=== PATIENT | male | born 1980 | race African-American/Black ===

== ENCOUNTER 2016-09-02 09:07 | Emergency (ER) | payer BC, MEDICAID ==
[2016-09-02 09:13] VITALS: TEMP 97.5
--- NOTE | 2016-09-02 09:28 | EDPHY ---
H & P Stated Complaint: swelling in left foot one week ago. thought it was gout - Personal History Current Tetanus/Diphtheria Vaccine: Yes Current Tetanus Diphtheria and Acellular Pertussis (TDAP): Yes - Medical/Surgical History Hx Asthma: No Hx Chronic Respiratory Disease: No Hx Diabetes: No Hx Cardiac Disease: No Hx Renal Disease: No Hx Cirrhosis: No Hx Alcoholism: No Hx HIV/AIDS: No Hx Splenectomy or Spleen Trauma: No Other PMH: HTN, ELEVATED CHOLESTEROL, GOUT, R KNEE ASPIRATION, HERNIA REPAIR X 2 - Social History Smoking Status: Never smoked HPI/ROS: Chief complaint: Left leg swelling History of present illness: This is a 35-year-old male who presents to the emergency department for evaluation of left leg swelling. Patient reports the onset of symptoms over the last 1-2 days. It initially started in the ankle, now feels the foot and lower leg are involved. He went to urgent care and was sent here to rule out DVT. He states it does not hurt. He is still able to move the leg well. He denies other associated signs or symptoms including no fevers, no redness, warmth or tenderness to the leg. No abnormal coolness or paresthesias in the leg. No history of trauma. No chest pain, no shortness of breath, no cough. His right leg is not affected. Review of systems: A 10 point review of systems was obtained and other than described above was negative (Marquis Lowery) - Physical Exam Exam: General Appearance: Alert, nontoxic. Eyes: Pupils equal and round no injection. Respiratory: Chest is nontender, lungs are clear to auscultation. Cardiovascular: Regular rate and rhythm. DP and PT pulses 2+. Musculoskeletal: No tenderness to palpation of the left leg. Trace edema to the ankle in left lower legs compared to the right leg. He is moving the leg without difficulty. He is ambulating well. Skin: No rashes or lesions. Neurological: Alert and oriented x4. Strength and sensation intact and symmetrical. (Marquis Lowery) Constitutional: Initial Vital Signs Temperature (C) 36.4 C 09/02/16 09:11 Heart Rate 77 09/02/16 09:11 Respiratory Rate 16 09/02/16 09:11 Blood Pressure 209/122 H 09/02/16 09:11 O2 Sat (%) 98 09/02/16 09:11 O2 Delivery Mode Room Air Allergies/Adverse Reactions: Penicillins Allergy (Verified 09/14/14 02:41) Home Medications: Medication Instructions Recorded Crestor 09/14/14 Lisinopril-Hctz 10-12.5 mg Tab 09/14/14 Verapamil 09/14/14 predniSONE [prednisone 20mg (RX)] 40 mg PO DAILY #6 tab 09/14/14 Medical Decision Making - Diagnostics Imaging: Discussed imaging studies w/ call center agent Radiologist - Diagnostics Imaging Results: Imaging Impressions Extremity Venous Study 09/02/16 09:19 Impression: No deep venous thrombosis in the left lower extremity. Findings discussed with ANDRES Arnett at 10:44 hour, 09/02/2016. ED Course/Re-evaluation: Patient seen under the supervision of my secondary supervising physician Dr. Sharmila Argueta. Patient presents to the emergency department for mild left leg swelling. The leg is neurovascularly intact. He has good musculoskeletal control. Ultrasound is negative. The right leg is not affected. He has no other complaints. Patient will be discharged home. He is asked to follow up with his primary care doctor for recheck of his leg as well as other findings including blood pressure. Return precautions are given. Patient voiced understanding and agreement with plan. (Marquis Lowery) Differential Diagnosis: Included but not limited to thromboembolic disease, infection, traumatic injury , unlikely systemic complications such as heart failure renal failure or liver failure given isolated left leg involvement with normal right leg (Marquis Lowery) Other Provider: The patient was evaluated and managed by the physician ophthalmology assistant. I have reviewed this chart and I agree with the findings and plan of care as documented , as indicated by my signature. I am the secondary supervising physician. ( Sharmila Argueta) Departure - Departure Disposition: Home, Routine, Self-Care Clinical Impression: Left leg swelling Condition: Good Instructions: Leg Edema (ED) Additional Instructions: Follow-up with your primary care doctor for recheck Talk your primary care doctor about repeat ultrasound as needed If symptoms worsen or new symptoms develop return to the emergency room for recheck Referrals: SOURAV HARDY [Primary Care Provider] - As per Instructions
[2016-09-02 11:29] VITALS: BP 174/99; PULSE 69; RESP 18; O2SAT 95
== END 2016-09-02 11:28 | disposition home or self-care (01) ==
DX: M79.89 Other specified soft tissue disorders (principal); I10 Essential (primary) hypertension

== ENCOUNTER 2017-08-16 16:17 | Emergency (ER) | payer BC ==
--- NOTE | 2017-08-16 17:11 | EDPHY ---
H & P Stated Complaint: LEFT LEG PAIN. SENT TO R/O DVT Time Seen by Provider: 08/16/17 16:40 - Personal History Current Tetanus/Diphtheria Vaccine: Yes Current Tetanus Diphtheria and Acellular Pertussis (TDAP): Yes - Medical/Surgical History Hx Asthma: No Hx Chronic Respiratory Disease: No Hx Diabetes: No Hx Cardiac Disease: No Hx Renal Disease: No Hx Cirrhosis: No Hx Alcoholism: No Hx HIV/AIDS: No Hx Splenectomy or Spleen Trauma: No Other PMH: HTN, ELEVATED CHOLESTEROL, GOUT, R KNEE ASPIRATION, HERNIA REPAIR X 2 - Social History Smoking Status: Never smoked Constitutional: Initial Vital Signs Temperature (C) 36.4 C 08/16/17 16:22 Heart Rate 78 08/16/17 16:22 Respiratory Rate 17 08/16/17 16:22 Blood Pressure 154/102 H 08/16/17 16:22 O2 Sat (%) 93 08/16/17 16:22 O2 Delivery Mode Room Air Allergies/Adverse Reactions: Penicillins Allergy (Verified 09/14/14 02:41) Home Medications: Medication Instructions Recorded Crestor 09/14/14 Lisinopril-Hctz 10-12.5 mg Tab 09/14/14 Verapamil 09/14/14 predniSONE [prednisone 20mg (RX)] 40 mg PO DAILY #6 tab 09/14/14 Medical Decision Making - Diagnostics Imaging: Discussed imaging studies w/ call center dispatcher Radiologist ED Course/Re-evaluation: CHIEF COMPLAINT: Left leg swelling and redness HISTORY OF PRESENT ILLNESS: The patient is a 36 y/o male with a history of gout and hypertension who presents with left leg redness and swelling that began 4 days ago. He first noticed redness along his lower left leg on Friday and by that evening he describes severe pain in his left knee that kept him from sleeping. By Friday morning he had associated swelling. He was unable to walk over the first two days of symptoms due to pain. Over the last few days the pain has faded, but he continues to have redness and swelling extending form his knee to his ankle along the anterior aspect. He denies any new topical contacts, long sedentary periods, or recent travel. No dyspnea, chest pain, fever, vomiting, nausea, diarrhea, urinary complaints. REVIEW OF SYSTEMS: A 10 point review of systems was performed and is negative with the exception of the elements mentioned in the history of present illness. PHYSICAL EXAM: HR, BP, O2 Sat, RR. Temp noted General Appearance: Alert, well hydrated, appropriate, and non-toxic appearing. Head: Atraumatic without scalp tenderness or obvious injury Eyes: Pupils equal, round, reactive to light and accommodation, EOMI, no trauma , no injection. Nose: Atraumatic, no rhinorrhea, clear. Throat: Mucus membranes moist. Neck: Supple, non-tender, no lymphadenopathy. Respiratory: No retractions, no distress, no wheezes, and no accessory muscle use. Lungs are clear to auscultation bilaterally. Cardiovascular: Regular rate and rhythm, no murmurs, rubs, or gallops. Normal left dorsalis pedis pulse. Good capillary refill all extremities. Gastrointestinal: Abdomen is soft, non-tender, non-distended, no masses, no rebound, no guarding, no peritoneal signs. Musculoskeletal: Normal active ROM of all extremities, atraumatic. Left leg: confluent erythema and dryness along leg from knee to ankle, no warmth , blanching, significant swelling. Neurological: Alert, appropriate, and interactive. The patient has non-focal cranial nerves, motor, sensory, and cerebellar exam. Skin: No rashes, good turgor, no nodules on palpation. PAST MEDICAL HISTORY: Hypertension, gout, hyperlipidemia PAST SURGICAL HISTORY: Hernia repair x2 SOCIAL HISTORY: Lives in [place]. Employed. DIAGNOSTICS/PROCEDURES/CRITICAL CARE TIME: Left leg US: negative for DVT DIFFERENTIAL DIAGNOSIS: The differential diagnosis for the patient's leg swelling included but was not limited to vasculitis, gout, hypoalbuminemia, congestive heart failure, cor pulmonale, venous stasis, trauma, and DVT. MEDICAL DECISION MAKING: This is a 36 y/o male with a history of gout who presents with a 4-day history of left lower leg redness and erythema and now-resolved left knee pain. On exam he has confluent erythema extending from his knee to his ankle without warmth, significant swelling, or tenderness. He has no signs of systemic illness and is generally well-appearing. Presentation could represent vasculitis, or less likely DVT, gout, or cellulitis. Plan for left leg US to rule out thrombus. US is negative. Patient will be discharged home with standard care and follow up instructions. Recommended following up with his PCP and rubber goods cutter finisher this week. Return precautions discussed. He is comfortable with this plan. Departure - Departure Disposition: Home, Routine, Self-Care Clinical Impression: Vasculitis, left leg Condition: Good Instructions: Additional Information Additional Instructions: 1. Follow up with your primary care provider this week. 2. Follow up with your rubber goods cutter finisher this week. You've been referred to Dr. Harrington locally if referral is needed. 3. Return to the ED for severe pain, chest pain, difficulty breathing, or other worsening of condition. Referrals: Chaka Khan DO [Primary Care Provider] - As per Instructions Frandy Pearson MD [[facility]] - As per Instructions Report Scribed for: Fredy Barksdale Report Scribed by: Mariya Priest Date of Report: 08/16/17 Time of Report: 17:11
[2017-08-16 19:12] VITALS: BP 175/113
== END 2017-08-16 19:41 | disposition home or self-care (01) ==
DX: L95.8 Other vasculitis limited to the skin (principal); I10 Essential (primary) hypertension

== ENCOUNTER → 2017-09-01 | Outpatient (CLI) | payer BC | LOC: FIMAGING 07:24 | PROVIDERS: ATTEND Family Medicine | DX: I10 Essential (primary) hypertension (principal) ==

== ENCOUNTER 2018-02-18 15:45 | Emergency (ER) | payer BC ==
[2018-02-18] MEDS ORDERED: LORazepam 2 MG/ML INJ IVP ONE ×2 (16:45→18:08)
--- NOTE | 2018-02-18 16:48 | EDPHY ---
H & P Stated Complaint: HTN Time Seen by Provider: 02/18/18 16:11 HPI/ROS: CHIEF COMPLAINT: Elevated blood pressure HISTORY OF PRESENT ILLNESS: 37-year-old male with hypertension presents with elevated blood pressure. He did not sleep well last night because of anxiety and awoke not feeling "right". He left work early, continued to feel anxious and took his blood pressure, which was 200/120. He called his physician who sent him to the ED. His longstanding history of hypertension and is currently taking lisinopril and chlorthalidone. No recent change in medications. Longstanding history of anxiety, not taking medication currently. No chest pain , shortness of breath, headache or abdominal pain. REVIEW OF SYSTEMS: complete 10 point ROS reviewed and is negative except for the noted elements in the HPI - Personal History Current Tetanus/Diphtheria Vaccine: Yes Current Tetanus Diphtheria and Acellular Pertussis (TDAP): Yes - Medical/Surgical History Hx Asthma: No Hx Chronic Respiratory Disease: No Hx Diabetes: No Hx Cardiac Disease: Yes Hx Renal Disease: No Hx Cirrhosis: No Hx Alcoholism: No Hx HIV/AIDS: No Hx Splenectomy or Spleen Trauma: No Other PMH: HTN, ELEVATED CHOLESTEROL, GOUT, R KNEE ASPIRATION, HERNIA REPAIR X 2 - Social History Smoking Status: Never smoked Alcohol Use: Sober - Physical Exam Exam: General Appearance: Alert, pleasant Eyes: Pupils equal and round, no conjunctival pallor or injection ENT, Mouth: Mucous membranes moist Neck: Normal inspection Respiratory: Lungs are clear to auscultation Cardiovascular: Regular rate and rhythm Gastrointestinal: Abdomen is soft and nontender Neurological: A&O, nonfocal, normal gait Skin: Warm and dry Extremities: Nontender, no pedal edema Psychiatric: Anxious Constitutional: Initial Vital Signs Temperature (C) 36.7 C 02/18/18 15:51 Heart Rate 84 02/18/18 15:51 Respiratory Rate 16 02/18/18 15:51 Blood Pressure 174/118 H 02/18/18 15:51 O2 Sat (%) 98 02/18/18 15:51 O2 Delivery Mode Room Air Allergies/Adverse Reactions: Penicillins Allergy (Verified 02/18/18 15:49) Home Medications: Medication Instructions Recorded Crestor 09/14/14 Lisinopril-Hctz 10-12.5 mg Tab 09/14/14 Verapamil 09/14/14 Potassium Cl [Klor-Con 20 meq (*)] 20 meq PO DAILY #5 tab 02/18/18 Medical Decision Making ED Course/Re-evaluation: This patient presents with elevated blood pressure. He also has significant anxiety. Ativan 0.5 mg IV given. I observed him in the emergency department and his systolic blood pressure ranged from 156-174. 1815: feels much better after IV Ativan. Requests a repeat dose; Ativan 0.5 mg IV given. Continued to feel much better. Hypokalemia noted. Potassium 40 mEq orally given. Prescription for potassium given. I feel that he is safe and stable for discharge home. He will take and record his blood pressure twice daily. He will follow up with his primary care physician for further blood pressure management. Differential Diagnosis: Includes though not limited to acute coronary syndrome, acute renal failure, ICH - Data Points Laboratory Results: Laboratory Results 02/18/18 16:35 02/18/18 16:35 02/18/18 02/18/18 02/18/18 18:01 16:35 16:35 WBC RBC Hgb Hct MCV MCH MCHC RDW Plt Count MPV Neut % (Auto) Lymph % (Auto) [place] % (Auto) Eos % (Auto) Baso % (Auto) Nucleat RBC Rel Count Absolute Neuts (auto) Absolute Lymphs (auto) Absolute Monos (auto) Absolute Eos (auto) Absolute Basos (auto) Absolute Nucleated RBC Immature Gran % Immature Gran # Sodium 138 mEq/L mEq/L (135-145) Potassium 2.8 mEq/L L mEq/L (3.3-5.0) Chloride 98 mEq/L mEq/L (97-110) Carbon Dioxide 26 mEq/l mEq/l (22-31) Anion Gap 14 mEq/L mEq/L (6-14) BUN 11 mg/dL mg/dL (7-23) Creatinine 0.8 mg/dL mg/dL (0.7-1.3) Estimated GFR > 60 Glucose 113 mg/dL H mg/dL (70-100) Calcium 9.9 mg/dL mg/dL (8.5-10.4) POC Troponin I 0.00 ng/mL ng/mL (0.00-0.08) TSH 1.920 uIU/mL uIU/mL (0.465-4.680) 10/31/18 16:35 WBC 8.26 10^3/uL 10^3/uL (3.80-9.50) RBC 4.94 10^6/uL 10^6/uL (4.40-6.38) Hgb 17.0 g/dL g/dL (13.7-17.5) Hct 46.6 % % (40.0-51.0) MCV 94.3 fL fL (81.5-99.8) MCH 34.4 pg H pg (27.9-34.1) MCHC 36.5 g/dL g/dL (32.4-36.7) RDW 12.7 % % (11.5-15.2) Plt Count 247 10^3/uL 10^3/uL (150-400) MPV 9.8 fL fL (8.7-11.7) Neut % (Auto) 79.2 % H % (39.3-74.2) Lymph % (Auto) 12.7 % L % (15.0-45.0) [place] % (Auto) 7.4 % % (4.5-13.0) Eos % (Auto) 0.0 % L % (0.6-7.6) Baso % (Auto) 0.5 % % (0.3-1.7) Nucleat RBC Rel Count 0.0 % % (0.0-0.2) Absolute Neuts (auto) 6.54 10^3/uL H 10^3/uL (1.70-6.50) Absolute Lymphs (auto) 1.05 10^3/uL 10^3/uL (1.00-3.00) Absolute Monos (auto) 0.61 10^3/uL 10^3/uL (0.30-0.80) Absolute Eos (auto) 0.00 10^3/uL L 10^3/uL (0.03-0.40) Absolute Basos (auto) 0.04 10^3/uL 10^3/uL (0.02-0.10) Absolute Nucleated RBC 0.00 10^3/uL 10^3/uL (0-0.01) Immature Gran % 0.2 % % (0.0-1.1) Immature Gran # 0.02 10^3/uL 10^3/uL (0.00-0.10) Sodium Potassium Chloride Carbon Dioxide Anion Gap BUN Creatinine Estimated GFR Glucose Calcium POC Troponin I TSH Medications Given: Discontinued Medications Lorazepam (Ativan Injection) 0.5 mg IVP EDNOW ONE Stop: 02/18/18 16:46 Last Admin: 02/18/18 17:10 Dose: 0.5 mg Lorazepam (Ativan Injection) 0.5 mg IVP EDNOW ONE Stop: 02/18/18 18:09 Last Admin: 02/18/18 18:28 Dose: 0.5 mg Potassium Chloride (Klor-Con) 40 meq PO EDNOW ONE Stop: 02/18/18 18:09 Last Admin: 02/18/18 18:28 Dose: 40 meq Point of Care Test Results: Chemistry 02/18/18 18:01 POC Troponin I 0.00 ng/mL ng/mL (0.00-0.08) Departure - Departure Disposition: Home, Routine, Self-Care Clinical Impression: Hypertension Qualifiers: Hypertension type: essential hypertension Qualified Code(s): I10 - Essential ( primary) hypertension Condition: Good Instructions: Hypertension (ED) Additional Instructions: Your potassium is running low today. You received potassium 40 mEq orally in the emergency department. I have written brief prescription for potassium for the next 5 days. You will need to follow up with her primary care physician to recheck your potassium level. Call back tomorrow morning for your thyroid test results. Call tomorrow morning to make an appointment with your physician. Referrals: Chaka Khan, [Primary Care Provider] - 1-2 days without fail Prescriptions: Potassium Cl [Klor-Con 20 meq (*)] 20 meq PO DAILY #5 tab
[2018-02-18 17:12] LABS: PLATELET COUNT 247 10^3/uL (150-400)
[2018-02-18] MEDS ORDERED: POTASSIUM CL 10 MEQ TAB PO ONE (18:08)
[2018-02-18 18:33] VITALS: BP 162/117
== END 2018-02-18 18:42 | disposition home or self-care (01) ==
DX: I10 Essential (primary) hypertension (principal); E87.6 Hypokalemia; E78.5 Hyperlipidemia, unspecified; M10.9 Gout, unspecified; Z88.0 Allergy status to penicillin
CPT/HCPCS: 84484-PO; 96374; J2060